=== PATIENT | male | born 1995 | race African-American/Black ===

== ENCOUNTER 2020-10-03 21:25 | Emergency (ER) | payer SELFPAY ==
[~2020-10-03] VITALS: Ht 180.3 cm; Wt 73.0 kg
[2020-10-03] MEDS ORDERED: SODIUM CHLORIDE 0.9% 1,000 ML IV ONE (22:15)
[2020-10-03 22:36] LABS: BASOPHILS % 0.4 % (0.0-2.0); HEMATOCRIT. 36.5 % (42.0-52.0); HEMOGLOBIN. 12.2 g/dL (14.0-18.0); LYMPHOCYTES % 19.5 % (20.0-50.0); MEAN CORPUSCULAR HEMOGLOBIN 27.1 pg (28.0-32.0); MEAN CORPUSCULAR VOLUME 81.1 fL (80.0-94.0); MEAN PLATELET VOLUME 8.3 fl (7.4-10.4); MONOCYTES % 7.1 % (2.0-8.0); PLATELET 372 x1000/uL (130-400); RED CELL DISTRIBUTION WIDTH 15.5 % (11.6-14.6)
[2020-10-03 22:41] LABS: CHLORIDE 120 mEq/L (98-107)
[2020-10-03 22:45] LABS: ETHANOL BLOOD < 10 mg/dL
[2020-10-03] MEDS ORDERED: LACTATED RINGERS 1,000 ML IV NR (23:15)
[2020-10-03 23:29] LABS: CLARITY URINE CLEAR (CLEAR); COLOR URINE DARK YELLOW (YELLOW); KETONES URINE 2+ (NEGATIVE); LEUKOCYTE ESTERASE URINE NEGATIVE (NEGATIVE); NITRITE URINE NEGATIVE (NEGATIVE); OCCULT BLOOD URINE NEGATIVE (NEGATIVE); PROTEIN URINE TRACE (NEGATIVE); UROBILINOGEN URINE 0.2 E.U./dL (0.2-1.0)
[2020-10-03 23:41] LABS: *AMPHETAMINES SCREEN URINE NEGATIVE (NEGATIVE); *BARBITURATES SCREEN URINE NEGATIVE (NEGATIVE); *BENZODIAZEPINES SCREEN URINE NEGATIVE (NEGATIVE); *COCAINE SCREEN URINE NEGATIVE (NEGATIVE)
[2020-10-03 23:42] LABS: CANNABINOID URINE SCREEN NEGATIVE (NEGATIVE); METHADONE URINE SCREEN NEGATIVE (NEGATIVE); OPIATES URINE SCREEN NEGATIVE (NEGATIVE); PHENCYCLIDINE URINE SCREEN NEGATIVE (NEGATIVE)
[2020-10-04] MEDS ORDERED: LORAZEPAM 2MG/ML CPJ IV SCH (11:15)
[2020-10-04] MEDS ORDERED: CLON1PAT11 TP (13:43)
[2020-10-04] MEDS ORDERED: ONDA4TAB5 MT (13:43)
[2020-10-04 14:47] VITALS: BP 142/87
== END 2020-10-04 15:22 | disposition home or self-care (01) ==
LOC: ER 21:25
DX: R41.82 Altered mental status, unspecified (principal)
CPT/HCPCS: 36415; 70450; 80053; 80305; 80320; 81003; 82962; 85025; 93005; 96361; 96374; 99285; J2060; J7030; G0480

== ENCOUNTER 2021-09-12 01:10 | Emergency (ER) | payer MEDICAID, OTHER ==
[~2021-09-12] VITALS: Ht 182.9 cm; Wt 78.0 kg
[~2021-09-12 01:10] MED LIST: CLON1PAT11 TP; ONDA4TAB5 MT
[2021-09-12] MEDS ORDERED: ONDANSETRON HCL 4MG/2ML INJ IV STA (02:26)
[2021-09-12 02:56] LABS: BASOPHILS % 0.3 % (0.0-2.0); HEMATOCRIT. 39.1 % (42.0-52.0); HEMOGLOBIN. 12.9 g/dL (14.0-18.0); LYMPHOCYTES % 11.1 % (20.0-50.0); MEAN CORPUSCULAR HEMOGLOBIN 25.2 pg (28.0-32.0); MEAN CORPUSCULAR VOLUME 76.3 fL (80.0-94.0); MEAN PLATELET VOLUME 8.9 fl (7.4-10.4); MONOCYTES % 9.3 % (2.0-8.0); NEUTROPHILS % 79.3 % (40.0-76.0); PLATELET 296 x1000/uL (130-400); RED BLOOD CELL COUNT 5.12 mill/uL (4.7-6.1); RED CELL DISTRIBUTION WIDTH 14.6 % (11.6-14.6)
[2021-09-12 03:03] LABS: BG BASE EXCESS -6.9 mmol/L (-2.0-2.0); BG CARBOXYHEMOGLOBIN 0.9 % (0.5-1.5); BG FRACTION INSPIRED OXYGEN 100; BG HCO3 ACT 19.5 mmol/L (22.0-26.0); BG METHEMOGLOBIN 0.2 % (0.0-1.5); BG OXYHEMOGLOBIN 97.9 % (94.0-97.0); BG PCO2 42.6 mmHg (35.0-45.0); BG PH 7.279 (7.350-7.450); BG PO2 168.6 mmHg (75.0-100.0); BG SAMPLE SITE RIGHT RADIAL; BG VENT MODE MASK - NRB
[2021-09-12 03:03] LABS: CHLORIDE 108 mEq/L (98-107)
[2021-09-12 03:14] LABS: ETHANOL BLOOD < 10 mg/dL
[2021-09-12] MEDS ORDERED: TETANUS, DIPHTHERIA, PERTUSSIS VAC/PF 0.5ML (>10YR OLD) IM ONE (04:45)
[2021-09-12] MEDS ORDERED: MIDAZOLAM HCL 2 MG/2 ML VIAL IV ONE (05:15)
[2021-09-12 05:17] LABS: CLARITY URINE CLEAR (CLEAR); COLOR URINE YELLOW (YELLOW); KETONES URINE 2+ (NEGATIVE); LEUKOCYTE ESTERASE URINE NEGATIVE (NEGATIVE); NITRITE URINE NEGATIVE (NEGATIVE); OCCULT BLOOD URINE NEGATIVE (NEGATIVE); PROTEIN URINE TRACE (NEGATIVE); SPECIFIC GRAVITY URINE 1.024 (1.005-1.030); UROBILINOGEN URINE 0.2 E.U./dL (0.2-1.0)
[2021-09-12 05:31] LABS: *AMPHETAMINES SCREEN URINE PRESUMTIVE POSITIVE (NEGATIVE); *BARBITURATES SCREEN URINE NEGATIVE (NEGATIVE); *BENZODIAZEPINES SCREEN URINE PRESUMTIVE POSITIVE (NEGATIVE); *COCAINE SCREEN URINE NEGATIVE (NEGATIVE); CANNABINOID URINE SCREEN NEGATIVE (NEGATIVE); METHADONE URINE SCREEN NEGATIVE (NEGATIVE); OPIATES URINE SCREEN NEGATIVE (NEGATIVE); PHENCYCLIDINE URINE SCREEN NEGATIVE (NEGATIVE)
[2021-09-12] MEDS ORDERED: SODIUM CHLORIDE 0.9% 1,000 ML IV ONE ×2 (07:15→09:15)
[2021-09-12] MEDS ORDERED: LORAZEPAM 2MG/ML CPJ IV ONE (07:15)
[2021-09-12] MEDS ORDERED: HALOPERIDOL LACTATE 5MG/ML VIAL IM ONE (07:15)
[2021-09-12] MEDS ORDERED: QUETIAPINE FUMARATE 50MG TABLET PO SCH (09:00)
[2021-09-12 10:18] LABS: CREATINE KINASE 1535 IU/L (39-308)
[2021-09-12 12:43] VITALS: BP 118/85
== END 2021-09-12 12:40 | disposition home or self-care (01) ==
LOC: ER 01:10 → CANBEDREQ 12:05 → ER 12:40
DX: G93.40 Encephalopathy, unspecified (principal); Z98.890 Other specified postprocedural states; Z20.822 Contact with and (suspected) exposure to COVID-19
CPT/HCPCS: 36415; 36600; 70450; 71045; 80053; 80305; 80307; 80320; 80329; 81003; 82375; 82550; 82805; 82962; 83605; 83880; 85025; 87426; 90471; 90715; 96361; 96372; 96374; 96375; 99291; C9803; J1630; J2060; J2250; J2405; J7030; G0480

== ENCOUNTER 2021-11-25 23:52 | Inpatient (IN) | payer BC, MEDICAID ==
[~2021-11-25] VITALS: Ht 180.3 cm; Wt 70.8 kg
[2021-11-26] VITALS (47 sets, daily range): BP systolic 115–181; BP diastolic 38–102
[2021-11-26 00:38] LABS: BASOPHILS % 0.2 % (0.0-2.0); EOSINOPHILS % 0.2 % (0.0-5.0); HEMATOCRIT. 32.6 % (42.0-52.0); HEMOGLOBIN. 10.7 g/dL (14.0-18.0); LYMPHOCYTES % 30.3 % (20.0-50.0); MEAN CORPUSCULAR VOLUME 76.2 fL (80.0-94.0); MEAN PLATELET VOLUME 8.3 fl (7.4-10.4); MONOCYTES % 8.9 % (2.0-8.0); NEUTROPHILS % 60.4 % (40.0-76.0); PLATELET 243 x1000/uL (130-400); RED BLOOD CELL COUNT 4.28 mill/uL (4.7-6.1); RED CELL DISTRIBUTION WIDTH 16.8 % (11.6-14.6)
[2021-11-26 00:43] LABS: CHLORIDE 99 mEq/L (98-107)
[2021-11-26 00:51] LABS: ETHANOL BLOOD < 10 mg/dL
[2021-11-26] MEDS ORDERED: SODIUM CHLORIDE 0.9% 1,000 ML IV ONE (01:45)
[2021-11-26] MEDS: NALOXONE HCL 0.4 MG/ML 1ML VIAL IV PRN (06:36)
[2021-11-26] MEDS ORDERED: SUCCINYLCHOLINE CHLORIDE 200MG/10ML IV ONE ×2 (06:45→08:00)
[2021-11-26] MEDS ORDERED: ETOMIDATE 2MG/ML 10ML VIAL IV ONE ×2 (06:45→08:25)
[2021-11-26] MEDS ORDERED: PROPOFOL 10MG/ML 100ML 100 ML IV ONE (06:45)
[2021-11-26] MEDS ORDERED: MIDAZOLAM HCL 2 MG/2 ML VIAL IV ONE ×2 (07:15→08:00)
[2021-11-26 07:42] LABS: BG BASE EXCESS -4.1 mmol/L (-2.0-2.0); BG CARBOXYHEMOGLOBIN 0.3 % (0.5-1.5); BG DEOXYHEMOGLOBIN 0.7 % (0.0-5.0); BG FRACTION INSPIRED OXYGEN 40; BG HCO3 ACT 21.8 mmol/L (22.0-26.0); BG METHEMOGLOBIN 0.1 % (0.0-1.5); BG OXYGEN SATURATION 99.3 % (92.0-98.5); BG OXYHEMOGLOBIN 98.9 % (94.0-97.0); BG PCO2 43.2 mmHg (35.0-45.0); BG PH 7.321 (7.350-7.450); BG PO2 210.4 mmHg (75.0-100.0); BG SAMPLE SITE RIGHT RADIAL; BG TOTAL HEMOGLOBIN 12.1 g/dL (12.0-18.0); BG VENT MODE VENT - AC
[2021-11-26] MEDS ORDERED: MIDAZOLAM HCL 100 MG in DEXT 5% WATER 80 ML IV ONE (08:00)
[2021-11-26] MEDS ORDERED: ACETAMINOPHEN 325MG TABLET PO PRN (08:15)
[2021-11-26] MEDS ORDERED: MIDAZOLAM HCL 100 MG in SODIUM CHLORIDE 0.9% 80 ML IV PRN ×2 (08:15→17:15)
[2021-11-26] MEDS ORDERED: ONDANSETRON HCL 4MG/2ML INJ IV PRN (08:15)
[2021-11-26] MEDS ORDERED: GUAIFENESIN 200MG/10ML SUGAR FREE UDC PO PRN (08:15)
[2021-11-26] MEDS ORDERED: IPRATROPIUM/ALBUTEROL 0.5-3(2.5)MG/3ML NEB HHN PRN (08:15)
[2021-11-26] MEDS ORDERED: MAGNESIUM/ALUMINUM HYDROXIDE/SIMETHICONE 30ML UDC PO PRN (08:15)
[2021-11-26] MEDS ORDERED: HYDRALAZINE 20MG/ML VIAL IV PRN (08:15)
[2021-11-26] MEDS ORDERED: VECURONIUM BROMIDE 10 MG/VIAL IV ONE (08:25)
[2021-11-26] MEDS ORDERED: SODIUM CHLORIDE 0.9% 10ML VIAL ONE (08:25)
[2021-11-26] MEDS ORDERED: ATROPINE SULFATE 1MG/10ML SYR ONE (08:25)
[2021-11-26 09:19] LABS: T4 FREE 1.35 ng/dL (0.76-1.46)
[2021-11-26] MEDS ORDERED: PROPOFOL 10MG/ML 100ML 100 ML IV NR (09:30)
[2021-11-26 10:07] LABS: CLARITY URINE CLEAR (CLEAR); COLOR URINE YELLOW (YELLOW); KETONES URINE 1+ (NEGATIVE); LEUKOCYTE ESTERASE URINE NEGATIVE (NEGATIVE); NITRITE URINE NEGATIVE (NEGATIVE); OCCULT BLOOD URINE NEGATIVE (NEGATIVE); PH URINE 5.5 (4.5-8.0); PROTEIN URINE NEGATIVE (NEGATIVE); SPECIFIC GRAVITY URINE 1.016 (1.005-1.030); UROBILINOGEN URINE 0.2 E.U./dL (0.2-1.0)
[2021-11-26 10:18] LABS: *AMPHETAMINES SCREEN URINE PRESUMTIVE POSITIVE (NEGATIVE); *BARBITURATES SCREEN URINE NEGATIVE (NEGATIVE); *BENZODIAZEPINES SCREEN URINE PRESUMTIVE POSITIVE (NEGATIVE); *COCAINE SCREEN URINE NEGATIVE (NEGATIVE); CANNABINOID URINE SCREEN NEGATIVE (NEGATIVE); METHADONE URINE SCREEN NEGATIVE (NEGATIVE); OPIATES URINE SCREEN NEGATIVE (NEGATIVE); PHENCYCLIDINE URINE SCREEN NEGATIVE (NEGATIVE)
[2021-11-26] MEDS: DEXT 5%/0.45% NACL 1000ML 1,000 ML IV SCH (11:47)
[2021-11-26] MEDS: ENOXAPARIN 40MG/0.4ML SYR SUBCUT SCH (11:47)
[2021-11-26] MEDS: SODIUM CHLORIDE 0.9% INJ 3ML FLUSH IVF SCH ×2 (14:00→22:00)
[2021-11-26] MEDS ORDERED: PROPOFOL 10MG/ML 100ML 100 ML IV SCH (15:00)
[2021-11-26 15:31] LABS: CREATINE KINASE 1855 IU/L (39-308)
[2021-11-26] MEDS ORDERED: FENTANYL CITRATE/PF 2,500 MCG in SODIUM CHLORIDE 0.9% 200 ML IV PRN (17:45)
[2021-11-26 18:09] LABS: CREATINE KINASE 1401 IU/L (39-308)
[2021-11-26] MEDS: IPRATROPIUM/ALBUTEROL 0.5-3(2.5)MG/3ML NEB HHN SCH (19:44)
[2021-11-26] MEDS: HALOPERIDOL LACTATE 5MG/ML VIAL IM PRN (20:44)
[2021-11-26] MEDS: RISPERIDONE 1MG TABLET PO SCH (21:00)
[2021-11-26] MEDS: CLONIDINE 0.1MG TABLET PO PRN (23:55)
[2021-11-27] VITALS (63 sets, daily range): BP systolic 119–194; BP diastolic 63–133
[2021-11-27 00:06] LABS: CREATINE KINASE MB FRACTION 14.6 ng/mL (0.5-3.6)
[2021-11-27] MEDS: IPRATROPIUM/ALBUTEROL 0.5-3(2.5)MG/3ML NEB HHN SCH ×4 (00:40→20:16)
[2021-11-27] MEDS: DEXT 5%/0.45% NACL 1000ML 1,000 ML IV SCH ×2 (01:01→17:35)
[2021-11-27 05:55] LABS: BASOPHILS % 0.2 % (0.0-2.0); EOSINOPHILS % 0.8 % (0.0-5.0); HEMATOCRIT. 32.6 % (42.0-52.0); HEMOGLOBIN. 10.7 g/dL (14.0-18.0); LYMPHOCYTES % 25.8 % (20.0-50.0); MEAN CORPUSCULAR HEMOGLOBIN 25.4 pg (28.0-32.0); MEAN PLATELET VOLUME 8.5 fl (7.4-10.4); MONOCYTES % 8.4 % (2.0-8.0); NEUTROPHILS % 64.8 % (40.0-76.0); PLATELET 222 x1000/uL (130-400); RED BLOOD CELL COUNT 4.23 mill/uL (4.7-6.1); RED CELL DISTRIBUTION WIDTH 17.5 % (11.6-14.6)
[2021-11-27 06:04] LABS: CHLORIDE 108 mEq/L (98-107)
[2021-11-27 06:19] LABS: CREATINE KINASE 995 IU/L (39-308)
[2021-11-27] MEDS: SODIUM CHLORIDE 0.9% INJ 3ML FLUSH IVF SCH ×3 (06:33→21:03)
[2021-11-27] MEDS: ENOXAPARIN 40MG/0.4ML SYR SUBCUT SCH (08:25)
[2021-11-27] MEDS: HALOPERIDOL LACTATE 5MG/ML VIAL IM PRN (08:25)
[2021-11-27] MEDS: RISPERIDONE 1MG TABLET PO SCH ×3 (08:25→21:03)
[2021-11-27 11:01] LABS: BG BASE EXCESS -2.5 mmol/L (-2.0-2.0); BG CARBOXYHEMOGLOBIN 0.3 % (0.5-1.5); BG DEOXYHEMOGLOBIN 2.2 % (0.0-5.0); BG FRACTION INSPIRED OXYGEN 35; BG METHEMOGLOBIN 0.3 % (0.0-1.5); BG OXYGEN SATURATION 97.8 % (92.0-98.5); BG OXYHEMOGLOBIN 97.2 % (94.0-97.0); BG PH 7.435 (7.350-7.450); BG PO2 101.7 mmHg (75.0-100.0); BG SAMPLE SITE LEFT BRACHIAL; BG TOTAL HEMOGLOBIN 11.2 g/dL (12.0-18.0); BG VENT MODE VENT - CPAP
[2021-11-27] MEDS ORDERED: NALOXONE HCL 0.4 MG/ML 1ML VIAL IV NR (12:00)
[2021-11-28] VITALS (54 sets, daily range): BP systolic 112–168; BP diastolic 60–127
[2021-11-28] MEDS: IPRATROPIUM/ALBUTEROL 0.5-3(2.5)MG/3ML NEB HHN SCH ×4 (00:43→21:18)
[2021-11-28] MEDS: SODIUM CHLORIDE 0.9% INJ 3ML FLUSH IVF SCH ×3 (06:00→21:33)
[2021-11-28] MEDS: DEXT 5%/0.45% NACL 1000ML 1,000 ML IV SCH (09:14)
[2021-11-28] MEDS: ENOXAPARIN 40MG/0.4ML SYR SUBCUT SCH (09:14)
[2021-11-29] VITALS: BP 149/53
[2021-11-29] MEDS: IPRATROPIUM/ALBUTEROL 0.5-3(2.5)MG/3ML NEB HHN SCH ×4 (01:11→21:39)
[2021-11-29] MEDS: DEXT 5%/0.45% NACL 1000ML 1,000 ML IV SCH (02:14)
[2021-11-29 04:00] VITALS: BP 139/85
[2021-11-29] MEDS: SODIUM CHLORIDE 0.9% INJ 3ML FLUSH IVF SCH ×2 (05:04→14:45)
[2021-11-29 08:00] VITALS: BP 101/72
[2021-11-29 08:20] LABS: BASOPHILS % 0.1 % (0.0-2.0); CHLORIDE 110 mEq/L (98-107); HEMATOCRIT. 31.1 % (42.0-52.0); HEMOGLOBIN. 10.3 g/dL (14.0-18.0); LYMPHOCYTES % 13.3 % (20.0-50.0); MEAN CORPUSCULAR HEMOGLOBIN 25.8 pg (28.0-32.0); MEAN CORPUSCULAR VOLUME 77.7 fL (80.0-94.0); MEAN PLATELET VOLUME 8.4 fl (7.4-10.4); MONOCYTES % 9.3 % (2.0-8.0); NEUTROPHILS % 77.3 % (40.0-76.0); PLATELET 200 x1000/uL (130-400); RED CELL DISTRIBUTION WIDTH 17.6 % (11.6-14.6)
[2021-11-29] MEDS: ENOXAPARIN 40MG/0.4ML SYR SUBCUT SCH (08:48)
[2021-11-29 12:00] VITALS: BP 123/83
[2021-11-29] MEDS ORDERED: HALOPERIDOL LACTATE 5MG/ML VIAL IM PRN (14:00)
[2021-11-29] MEDS ORDERED: MIDAZOLAM HCL 5 MG/5 ML VIAL IV NR (15:45)
[2021-11-29 16:00] VITALS: BP 108/52
[2021-11-29 20:00] VITALS: BP_SYST 119; BP_SYST 138; BP_DIAS 68; BP_DIAS 70
[2021-11-30] VITALS: BP 139/79
[2021-11-30] MEDS ORDERED: MIDAZOLAM HCL 2 MG/2 ML VIAL IV NR (00:45)
[2021-11-30] MEDS: IPRATROPIUM/ALBUTEROL 0.5-3(2.5)MG/3ML NEB HHN SCH ×4 (03:03→20:29)
[2021-11-30 04:00] VITALS: BP 137/93
[2021-11-30] MEDS: HALOPERIDOL LACTATE 5MG/ML VIAL IM PRN ×2 (05:03→14:15)
[2021-11-30] MEDS: SODIUM CHLORIDE 0.9% INJ 3ML FLUSH IVF SCH ×4 (06:11→21:13)
[2021-11-30 08:00] VITALS: BP 101/56
[2021-11-30 09:59] LABS: BASOPHILS % 0.1 % (0.0-2.0); EOSINOPHILS % 0.1 % (0.0-5.0); HEMATOCRIT. 35.7 % (42.0-52.0); HEMOGLOBIN. 11.6 g/dL (14.0-18.0); LYMPHOCYTES % 10.5 % (20.0-50.0); MEAN CORPUSCULAR HEMOGLOBIN 25.5 pg (28.0-32.0); MEAN CORPUSCULAR VOLUME 78.5 fL (80.0-94.0); MEAN PLATELET VOLUME 8.9 fl (7.4-10.4); MONOCYTES % 11.1 % (2.0-8.0); NEUTROPHILS % 78.2 % (40.0-76.0); PLATELET 266 x1000/uL (130-400); RED BLOOD CELL COUNT 4.55 mill/uL (4.7-6.1); RED CELL DISTRIBUTION WIDTH 17.9 % (11.6-14.6)
[2021-11-30 10:39] LABS: CHLORIDE 121 mEq/L (98-107)
[2021-11-30] MEDS: ENOXAPARIN 40MG/0.4ML SYR SUBCUT SCH (10:50)
[2021-11-30 12:00] VITALS: BP 140/92
[2021-11-30 16:00] VITALS: BP 134/92
[2021-11-30] MEDS ORDERED: ACETAMINOPHEN 650MG SUPP PR PRN (17:30)
[2021-11-30] MEDS: DEXT 5%/0.45% NACL 1000ML 1,000 ML IV SCH ×2 (17:39)
[2021-11-30] MEDS ORDERED: LEVETIRACETAM 500 MG in SODIUM CHLORIDE 0.9% 100 ML IV SCH (19:30)
[2021-11-30 20:00] VITALS: BP 130/84
[2021-11-30] MEDS ORDERED: FOLIC ACID 1 MG, THIAMINE HCL 100 MG, MVI, ADULT NO.1 10 ML in DEXTROSE 5% WATER 1,000 ML IV ONE ×4 (21:00)
[2021-11-30] MEDS: LEVETIRACETAM 500MG PREMIX 100 ML IV SCH (21:12)
[2021-12-01] VITALS: BP 141/87
[2021-12-01] MEDS: IPRATROPIUM/ALBUTEROL 0.5-3(2.5)MG/3ML NEB HHN SCH ×4 (01:42→20:20)
[2021-12-01] MEDS: DEXT 5%/0.45% NACL 1000ML 1,000 ML IV SCH (02:51)
[2021-12-01 04:00] VITALS: BP 142/81
[2021-12-01] MEDS: SODIUM CHLORIDE 0.9% INJ 3ML FLUSH IVF SCH ×3 (05:12→22:04)
[2021-12-01 06:08] LABS: HEMATOCRIT. 40.4 % (42.0-52.0); HEMOGLOBIN. 13.1 g/dL (14.0-18.0); MEAN CORPUSCULAR HEMOGLOBIN 25.5 pg (28.0-32.0); MEAN CORPUSCULAR VOLUME 78.4 fL (80.0-94.0); MEAN PLATELET VOLUME 8.8 fl (7.4-10.4); PLATELET 299 x1000/uL (130-400); RED BLOOD CELL COUNT 5.15 mill/uL (4.7-6.1); RED CELL DISTRIBUTION WIDTH 18.1 % (11.6-14.6)
[2021-12-01 06:32] LABS: CHLORIDE 123 mEq/L (98-107)
[2021-12-01 08:00] VITALS: BP 137/84
[2021-12-01] MEDS: ENOXAPARIN 40MG/0.4ML SYR SUBCUT SCH (08:37)
[2021-12-01] MEDS: LEVETIRACETAM 500MG PREMIX 100 ML IV SCH (08:38)
[2021-12-01] MEDS: DEXTROSE 5% WATER 1,000 ML IV SCH ×2 (08:38→17:37)
[2021-12-01 09:49] LABS: CREATINE KINASE 10835 IU/L (39-308)
[2021-12-01 11:50] LABS: PLATELET ESTIMATE NORMAL
[2021-12-01 12:00] VITALS: BP 140/84
[2021-12-01] MEDS ORDERED: PHENYTOIN SODIUM 300 MG in SODIUM CHLORIDE 0.9% 100 ML IV NR (12:00)
[2021-12-01 16:00] VITALS: BP 142/85
[2021-12-01] MEDS: PHENYTOIN SODIUM 100MG/2ML VIAL IV SCH (19:47)
[2021-12-01 20:00] VITALS: BP 130/86
[2021-12-02] VITALS (57 sets, daily range): BP systolic 104–170; BP diastolic 68–116
[2021-12-02] MEDS: DEXTROSE 5% WATER 1,000 ML IV SCH ×3 (02:30→23:32)
[2021-12-02] MEDS: IPRATROPIUM/ALBUTEROL 0.5-3(2.5)MG/3ML NEB HHN SCH ×4 (03:20→20:14)
[2021-12-02] MEDS: PHENYTOIN SODIUM 100MG/2ML VIAL IV SCH ×3 (05:48→21:27)
[2021-12-02] MEDS: SODIUM CHLORIDE 0.9% INJ 3ML FLUSH IVF SCH ×3 (05:48→21:27)
[2021-12-02 06:36] LABS: BASOPHILS % 0.1 % (0.0-2.0); HEMATOCRIT. 41.5 % (42.0-52.0); HEMOGLOBIN. 13.2 g/dL (14.0-18.0); LYMPHOCYTES % 8.1 % (20.0-50.0); MEAN CORPUSCULAR HEMOGLOBIN 25.4 pg (28.0-32.0); MEAN CORPUSCULAR VOLUME 79.6 fL (80.0-94.0); MEAN PLATELET VOLUME 9.1 fl (7.4-10.4); MONOCYTES % 8.6 % (2.0-8.0); NEUTROPHILS % 83.2 % (40.0-76.0); PLATELET 297 x1000/uL (130-400); RED BLOOD CELL COUNT 5.21 mill/uL (4.7-6.1); RED CELL DISTRIBUTION WIDTH 17.9 % (11.6-14.6)
[2021-12-02 06:55] LABS: CHLORIDE 124 mEq/L (98-107)
[2021-12-02 07:45] LABS: PHOSPHORUS 1.6 mg/dL (2.5-4.9)
[2021-12-02 07:46] LABS: CREATINE KINASE 8824 IU/L (39-308)
[2021-12-02] MEDS: ENOXAPARIN 40MG/0.4ML SYR SUBCUT SCH (08:46)
[2021-12-02] MEDS ORDERED: SODIUM CHLORIDE 0.9% 1,000 ML IV SCH (12:00)
[2021-12-02 12:10] LABS: BG BASE EXCESS 2.5 mmol/L (-2.0-2.0); BG CARBOXYHEMOGLOBIN 0.6 % (0.5-1.5); BG DEOXYHEMOGLOBIN 7.4 % (0.0-5.0); BG HCO3 ACT 25.2 mmol/L (22.0-26.0); BG METHEMOGLOBIN 0.3 % (0.0-1.5); BG OXYGEN SATURATION 92.5 % (92.0-98.5); BG OXYHEMOGLOBIN 91.7 % (94.0-97.0); BG PCO2 33.3 mmHg (35.0-45.0); BG PH 7.497 (7.350-7.450); BG PO2 61.6 mmHg (75.0-100.0); BG SAMPLE SITE RIGHT BRACHIAL; BG TOTAL HEMOGLOBIN 14.4 g/dL (12.0-18.0); BG VENT MODE NASAL CANNULA
[2021-12-02] MEDS ORDERED: PHENYLEPHRINE 50 MG in DEXT 5% WATER 245 ML IV PRN (13:00)
[2021-12-02] MEDS ORDERED: THIAMINE HCL 100 MG in SODIUM CHLORIDE 0.9% 49 ML IV SCH (13:00)
[2021-12-02] MEDS ORDERED: FENTANYL 2500MCG/250ML PMX 250 ML IV PRN (13:15)
[2021-12-02 13:20] LABS: BG BASE EXCESS -1.3 mmol/L (-2.0-2.0); BG CARBOXYHEMOGLOBIN 0.3 % (0.5-1.5); BG DEOXYHEMOGLOBIN 0.2 % (0.0-5.0); BG HCO3 ACT 26.4 mmol/L (22.0-26.0); BG METHEMOGLOBIN 0.2 % (0.0-1.5); BG OXYGEN SATURATION 99.8 % (92.0-98.5); BG OXYHEMOGLOBIN 99.3 % (94.0-97.0); BG PCO2 56.5 mmHg (35.0-45.0); BG PH 7.288 (7.350-7.450); BG PO2 354.2 mmHg (75.0-100.0); BG SAMPLE SITE RIGHT BRACHIAL; BG TOTAL HEMOGLOBIN 14.7 g/dL (12.0-18.0); BG VENT MODE VENT - AC
[2021-12-02] MEDS ORDERED: FENTANYL CITRATE 2,500 MCG in SODIUM CHLORIDE 0.9% 200 ML IV PRN (13:30)
[2021-12-02] MEDS ORDERED: METOPROLOL TARTRATE 25MG TABLET PO SCH (15:15)
[2021-12-02] MEDS: PROPOFOL 10MG/ML 100ML 100 ML IV PRN (16:29)
[2021-12-02] MEDS: METOPROLOL TARTRATE 25MG TABLET PO SCH ×2 (16:30→23:35)
[2021-12-02] MEDS: PIPERACILLIN/TAZOBACTAM 3.375 G in DEXTROSE 5% WATER 50 ML IV SCH ×2 (16:31→21:27)
[2021-12-03] VITALS (91 sets, daily range): BP systolic 104–142; BP diastolic 66–98
[2021-12-03] MEDS: PROPOFOL 10MG/ML 100ML 100 ML IV PRN ×3 (00:14→17:00)
[2021-12-03] MEDS: IPRATROPIUM/ALBUTEROL 0.5-3(2.5)MG/3ML NEB HHN SCH ×4 (00:19→19:54)
[2021-12-03] MEDS: ACETYLCYSTEINE 100MG/ML 10% VIAL 4ML INH SCH ×3 (00:20→16:23)
[2021-12-03] MEDS: PIPERACILLIN/TAZOBACTAM 3.375 G in DEXTROSE 5% WATER 50 ML IV SCH ×3 (05:26→21:28)
[2021-12-03] MEDS: PHENYTOIN SODIUM 100MG/2ML VIAL IV SCH ×3 (05:27→21:28)
[2021-12-03] MEDS: SODIUM CHLORIDE 0.9% INJ 3ML FLUSH IVF SCH ×3 (05:27→21:28)
[2021-12-03 05:36] LABS: BASOPHILS % 0.1 % (0.0-2.0); EOSINOPHILS % 0.1 % (0.0-5.0); HEMATOCRIT. 38.5 % (42.0-52.0); HEMOGLOBIN. 12.1 g/dL (14.0-18.0); LYMPHOCYTES % 11.4 % (20.0-50.0); MEAN CORPUSCULAR HEMOGLOBIN 24.9 pg (28.0-32.0); MEAN CORPUSCULAR VOLUME 79.3 fL (80.0-94.0); MEAN PLATELET VOLUME 9.6 fl (7.4-10.4); MONOCYTES % 7.5 % (2.0-8.0); NEUTROPHILS % 80.9 % (40.0-76.0); PLATELET 275 x1000/uL (130-400); RED BLOOD CELL COUNT 4.86 mill/uL (4.7-6.1); RED CELL DISTRIBUTION WIDTH 18.6 % (11.6-14.6)
[2021-12-03 08:49] LABS: BG BASE EXCESS -0.5 mmol/L (-2.0-2.0); BG CARBOXYHEMOGLOBIN 0.3 % (0.5-1.5); BG DEOXYHEMOGLOBIN 0.9 % (0.0-5.0); BG FRACTION INSPIRED OXYGEN 50; BG HCO3 ACT 25.2 mmol/L (22.0-26.0); BG METHEMOGLOBIN 0.2 % (0.0-1.5); BG OXYGEN SATURATION 99.1 % (92.0-98.5); BG OXYHEMOGLOBIN 98.6 % (94.0-97.0); BG PCO2 45.1 mmHg (35.0-45.0); BG PH 7.365 (7.350-7.450); BG PO2 171.4 mmHg (75.0-100.0); BG SAMPLE SITE LEFT RADIAL; BG TOTAL HEMOGLOBIN 14.6 g/dL (12.0-18.0); BG VENT MODE VENT - AC
[2021-12-03] MEDS: METOPROLOL TARTRATE 25MG TABLET PO SCH ×2 (09:58→20:32)
[2021-12-03] MEDS: DEXTROSE 5% WATER 1,000 ML IV SCH ×2 (09:59→20:32)
[2021-12-03] MEDS: ENOXAPARIN 40MG/0.4ML SYR SUBCUT SCH (09:59)
[2021-12-03] MEDS: THIAMINE HCL 100MG TABLET PO SCH (12:38)
[2021-12-03] MEDS: LACTULOSE 20G/30ML UDC PO SCH ×2 (14:47→21:28)
[2021-12-03] MEDS ORDERED: LACTULOSE 20G/30ML UDC PO NR (16:00)
[2021-12-03] MEDS: POLYVINYL ALCOHOL OPHTH DROPS 15ML BOTHEYE SCH (18:37)
[2021-12-03] MEDS ORDERED: ACETAMINOPHEN 325MG TABLET NG PRN (20:15)
[2021-12-03] MEDS: ACETAMINOPHEN 650MG/20.3ML UDC NG PRN (20:33)
[2021-12-04] VITALS (56 sets, daily range): BP systolic 103–154; BP diastolic 69–98
[2021-12-04] MEDS: IPRATROPIUM/ALBUTEROL 0.5-3(2.5)MG/3ML NEB HHN SCH ×4 (00:28→21:16)
[2021-12-04] MEDS: ACETYLCYSTEINE 100MG/ML 10% VIAL 4ML INH SCH ×2 (00:28→08:33)
[2021-12-04] MEDS: PROPOFOL 10MG/ML 100ML 100 ML IV PRN ×2 (01:11→08:25)
[2021-12-04 05:19] LABS: BASOPHILS % 0.1 % (0.0-2.0); EOSINOPHILS % 0.9 % (0.0-5.0); HEMATOCRIT. 34.5 % (42.0-52.0); HEMOGLOBIN. 10.9 g/dL (14.0-18.0); LYMPHOCYTES % 10.2 % (20.0-50.0); MEAN CORPUSCULAR HEMOGLOBIN 24.9 pg (28.0-32.0); MEAN CORPUSCULAR VOLUME 78.5 fL (80.0-94.0); MEAN PLATELET VOLUME 9.5 fl (7.4-10.4); MONOCYTES % 5.6 % (2.0-8.0); NEUTROPHILS % 83.2 % (40.0-76.0); PLATELET 195 x1000/uL (130-400); RED CELL DISTRIBUTION WIDTH 17.8 % (11.6-14.6)
[2021-12-04] MEDS: LACTULOSE 20G/30ML UDC PO SCH ×3 (05:39→22:00)
[2021-12-04] MEDS: PHENYTOIN SODIUM 100MG/2ML VIAL IV SCH ×3 (05:39→22:34)
[2021-12-04] MEDS: SODIUM CHLORIDE 0.9% INJ 3ML FLUSH IVF SCH ×3 (05:39→22:36)
[2021-12-04] MEDS: PIPERACILLIN/TAZOBACTAM 3.375 G in DEXTROSE 5% WATER 50 ML IV SCH ×3 (05:39→22:34)
[2021-12-04] MEDS: DEXTROSE 5% WATER 1,000 ML IV SCH ×3 (05:40→19:16)
[2021-12-04] MEDS: POLYVINYL ALCOHOL OPHTH DROPS 15ML BOTHEYE SCH ×4 (05:40→17:44)
[2021-12-04] MEDS: ACETAMINOPHEN 650MG/20.3ML UDC NG PRN (05:46)
[2021-12-04 06:08] LABS: PHOSPHORUS 3.9 mg/dL (2.5-4.9)
[2021-12-04] MEDS ORDERED: POTASSIUM CHLORIDE 20MEQ/PACKET PO NR (07:00)
[2021-12-04 07:26] LABS: BG BASE EXCESS 0.9 mmol/L (-2.0-2.0); BG CARBOXYHEMOGLOBIN 0.2 % (0.5-1.5); BG HCO3 ACT 26.2 mmol/L (22.0-26.0); BG METHEMOGLOBIN 0.2 % (0.0-1.5); BG OXYHEMOGLOBIN 98.6 % (94.0-97.0); BG PCO2 44.4 mmHg (35.0-45.0); BG PH 7.389 (7.350-7.450); BG PO2 166.2 mmHg (75.0-100.0); BG SAMPLE SITE RIGHT RADIAL; BG TOTAL HEMOGLOBIN 12.3 g/dL (12.0-18.0); BG VENT MODE VENT - AC
[2021-12-04] MEDS: THIAMINE HCL 100MG TABLET PO SCH (08:22)
[2021-12-04] MEDS: ENOXAPARIN 40MG/0.4ML SYR SUBCUT SCH (08:23)
[2021-12-04] MEDS: METOPROLOL TARTRATE 25MG TABLET PO SCH ×2 (08:23→22:35)
[2021-12-04 10:17] LABS: BG BASE EXCESS 0.3 mmol/L (-2.0-2.0); BG CARBOXYHEMOGLOBIN 0.2 % (0.5-1.5); BG FRACTION INSPIRED OXYGEN 40; BG HCO3 ACT 25.1 mmol/L (22.0-26.0); BG METHEMOGLOBIN 0.1 % (0.0-1.5); BG OXYHEMOGLOBIN 98.7 % (94.0-97.0); BG PCO2 41.3 mmHg (35.0-45.0); BG PH 7.402 (7.350-7.450); BG PO2 171.8 mmHg (75.0-100.0); BG SAMPLE SITE RIGHT RADIAL; BG TOTAL HEMOGLOBIN 11.8 g/dL (12.0-18.0); BG VENT MODE VENT - CPAP
[2021-12-05] VITALS (19 sets, daily range): BP systolic 69–147; BP diastolic 50–119
[2021-12-05] MEDS: IPRATROPIUM/ALBUTEROL 0.5-3(2.5)MG/3ML NEB HHN SCH ×4 (00:50→20:37)
[2021-12-05] MEDS: ACETYLCYSTEINE 100MG/ML 10% VIAL 4ML INH SCH ×3 (00:50→16:35)
[2021-12-05] MEDS: DEXTROSE 5% WATER 1,000 ML IV SCH ×4 (01:56→21:31)
[2021-12-05] MEDS: PIPERACILLIN/TAZOBACTAM 3.375 G in DEXTROSE 5% WATER 50 ML IV SCH ×3 (05:08→21:32)
[2021-12-05] MEDS: POLYVINYL ALCOHOL OPHTH DROPS 15ML BOTHEYE SCH ×4 (05:08→18:18)
[2021-12-05] MEDS: PHENYTOIN SODIUM 100MG/2ML VIAL IV SCH ×3 (05:19→21:32)
[2021-12-05] MEDS: SODIUM CHLORIDE 0.9% INJ 3ML FLUSH IVF SCH ×3 (05:20→21:32)
[2021-12-05] MEDS: LACTULOSE 20G/30ML UDC PO SCH ×3 (05:38→21:30)
[2021-12-05 05:39] LABS: BASOPHILS % 0.2 % (0.0-2.0); EOSINOPHILS % 1.4 % (0.0-5.0); HEMATOCRIT. 32.7 % (42.0-52.0); HEMOGLOBIN. 10.5 g/dL (14.0-18.0); LYMPHOCYTES % 10.8 % (20.0-50.0); MEAN CORPUSCULAR HEMOGLOBIN 25.1 pg (28.0-32.0); MEAN CORPUSCULAR VOLUME 77.9 fL (80.0-94.0); MEAN PLATELET VOLUME 10.2 fl (7.4-10.4); MONOCYTES % 5.8 % (2.0-8.0); NEUTROPHILS % 81.8 % (40.0-76.0); PLATELET 206 x1000/uL (130-400); RED CELL DISTRIBUTION WIDTH 17.1 % (11.6-14.6)
[2021-12-05 05:58] LABS: CHLORIDE 107 mEq/L (98-107)
[2021-12-05 06:32] LABS: CREATINE KINASE 12823 IU/L (39-308); PHOSPHORUS 1.6 mg/dL (2.5-4.9)
[2021-12-05] MEDS: THIAMINE HCL 100MG TABLET PO SCH (09:00)
[2021-12-05] MEDS: METOPROLOL TARTRATE 25MG TABLET PO SCH ×2 (09:00→21:00)
[2021-12-05] MEDS: ENOXAPARIN 40MG/0.4ML SYR SUBCUT SCH (09:00)
[2021-12-05] MEDS ORDERED: POTASSIUM PHOS,M-BASIC-D-BASIC 10 MMOL in DEXT 5% WATER 246.6667 ML IV NR (14:30)
[2021-12-05] MEDS: ACETAMINOPHEN 650MG/20.3ML UDC NG PRN (21:30)
[2021-12-06] VITALS (12 sets, daily range): BP systolic 125–133; BP diastolic 66–84
[2021-12-06] MEDS: POLYVINYL ALCOHOL OPHTH DROPS 15ML BOTHEYE SCH ×5 (00:48→23:02)
[2021-12-06] MEDS: ACETAMINOPHEN 650MG/20.3ML UDC NG PRN (00:51)
[2021-12-06] MEDS: IPRATROPIUM/ALBUTEROL 0.5-3(2.5)MG/3ML NEB HHN SCH ×4 (02:25→20:19)
[2021-12-06] MEDS: ACETYLCYSTEINE 100MG/ML 10% VIAL 4ML INH SCH ×3 (02:25→17:05)
[2021-12-06] MEDS: SODIUM CHLORIDE 0.9% INJ 3ML FLUSH IVF SCH ×3 (06:40→21:23)
[2021-12-06] MEDS: PIPERACILLIN/TAZOBACTAM 3.375 G in DEXTROSE 5% WATER 50 ML IV SCH ×3 (06:40→21:23)
[2021-12-06] MEDS: PHENYTOIN SODIUM 100MG/2ML VIAL IV SCH ×2 (06:40→14:30)
[2021-12-06] MEDS: LACTULOSE 20G/30ML UDC PO SCH ×3 (06:40→21:24)
[2021-12-06 08:31] LABS: BASOPHILS % 0.1 % (0.0-2.0); EOSINOPHILS % 1.7 % (0.0-5.0); HEMATOCRIT. 32.3 % (42.0-52.0); HEMOGLOBIN. 10.5 g/dL (14.0-18.0); LYMPHOCYTES % 16.5 % (20.0-50.0); MEAN CORPUSCULAR HEMOGLOBIN 25.4 pg (28.0-32.0); MEAN CORPUSCULAR VOLUME 78.2 fL (80.0-94.0); MEAN PLATELET VOLUME 9.7 fl (7.4-10.4); MONOCYTES % 7.8 % (2.0-8.0); NEUTROPHILS % 73.9 % (40.0-76.0); PLATELET 209 x1000/uL (130-400); RED BLOOD CELL COUNT 4.14 mill/uL (4.7-6.1)
[2021-12-06 08:40] LABS: CHLORIDE 107 mEq/L (98-107)
[2021-12-06] MEDS: ENOXAPARIN 40MG/0.4ML SYR SUBCUT SCH (08:40)
[2021-12-06] MEDS: METOPROLOL TARTRATE 25MG TABLET PO SCH ×2 (08:41→21:47)
[2021-12-06] MEDS: THIAMINE HCL 100MG TABLET PO SCH (08:41)
[2021-12-06 08:43] LABS: PHOSPHORUS 1.9 mg/dL (2.5-4.9)
[2021-12-06] MEDS: PANTOPRAZOLE SODIUM 40 MG/VIAL IV SCH (11:28)
[2021-12-06] MEDS: DEXTROSE 5% WATER 1,000 ML IV SCH ×2 (11:28→17:20)
[2021-12-06] MEDS ORDERED: POTASSIUM CHLORIDE 20MEQ TABLET SR PO NR (14:45)
[2021-12-06] MEDS: PHENYTOIN SODIUM EXTENDED 100MG CAPSULE PO SCH (21:23)
[2021-12-07] VITALS (12 sets, daily range): BP systolic 131–166; BP diastolic 72–101
[2021-12-07] MEDS: DIPHENHYDRAMINE 50MG/ML VIAL IV PRN (00:19)
[2021-12-07] MEDS: DEXTROSE 5% WATER 1,000 ML IV SCH ×4 (00:21→21:21)
[2021-12-07] MEDS: ACETYLCYSTEINE 100MG/ML 10% VIAL 4ML INH SCH ×2 (02:09→09:18)
[2021-12-07] MEDS: IPRATROPIUM/ALBUTEROL 0.5-3(2.5)MG/3ML NEB HHN SCH ×4 (02:11→19:54)
[2021-12-07] MEDS: LACTULOSE 20G/30ML UDC PO SCH ×3 (05:19→21:18)
[2021-12-07] MEDS: PIPERACILLIN/TAZOBACTAM 3.375 G in DEXTROSE 5% WATER 50 ML IV SCH ×3 (05:20→21:19)
[2021-12-07] MEDS: SODIUM CHLORIDE 0.9% INJ 3ML FLUSH IVF SCH ×3 (05:20→21:18)
[2021-12-07] MEDS: PHENYTOIN SODIUM EXTENDED 100MG CAPSULE PO SCH ×3 (05:20→21:19)
[2021-12-07] MEDS: POLYVINYL ALCOHOL OPHTH DROPS 15ML BOTHEYE SCH ×4 (05:21→23:54)
[2021-12-07 06:11] LABS: BASOPHILS % 0.3 % (0.0-2.0); EOSINOPHILS % 2.2 % (0.0-5.0); HEMATOCRIT. 32.5 % (42.0-52.0); HEMOGLOBIN. 10.4 g/dL (14.0-18.0); MEAN CORPUSCULAR HEMOGLOBIN 25.2 pg (28.0-32.0); MEAN CORPUSCULAR VOLUME 78.6 fL (80.0-94.0); MEAN PLATELET VOLUME 9.5 fl (7.4-10.4); MONOCYTES % 7.9 % (2.0-8.0); NEUTROPHILS % 68.6 % (40.0-76.0); PLATELET 248 x1000/uL (130-400); RED BLOOD CELL COUNT 4.13 mill/uL (4.7-6.1); RED CELL DISTRIBUTION WIDTH 16.8 % (11.6-14.6)
[2021-12-07 06:13] LABS: CHLORIDE 105 mEq/L (98-107)
[2021-12-07 06:55] LABS: CREATINE KINASE 5928 IU/L (39-308)
[2021-12-07] MEDS: THIAMINE HCL 100MG TABLET PO SCH (08:51)
[2021-12-07] MEDS: ENOXAPARIN 40MG/0.4ML SYR SUBCUT SCH (08:52)
[2021-12-07] MEDS: METOPROLOL TARTRATE 25MG TABLET PO SCH ×2 (08:52→21:20)
[2021-12-07] MEDS: PANTOPRAZOLE SODIUM 40 MG/VIAL IV SCH (08:52)
[2021-12-07] MEDS ORDERED: POTASSIUM PHOS,M-BASIC-D-BASIC 15 MMOL in DEXT 5% WATER 245 ML IV ONE (10:00)
[2021-12-07] MEDS: CLONIDINE 0.1MG TABLET PO PRN (18:39)
[2021-12-08] VITALS (12 sets, daily range): BP systolic 144–175; BP diastolic 65–82
[2021-12-08] MEDS: CLONIDINE 0.1MG TABLET PO PRN ×2 (00:01→09:28)
[2021-12-08] MEDS: DIPHENHYDRAMINE 50MG/ML VIAL IV PRN (00:02)
[2021-12-08] MEDS: IPRATROPIUM/ALBUTEROL 0.5-3(2.5)MG/3ML NEB HHN SCH ×4 (01:44→20:28)
[2021-12-08] MEDS: SODIUM CHLORIDE 0.9% INJ 3ML FLUSH IVF SCH ×3 (05:25→21:04)
[2021-12-08] MEDS: POLYVINYL ALCOHOL OPHTH DROPS 15ML BOTHEYE SCH ×4 (05:25→23:55)
[2021-12-08] MEDS: PHENYTOIN SODIUM EXTENDED 100MG CAPSULE PO SCH ×3 (05:25→21:00)
[2021-12-08] MEDS: LACTULOSE 20G/30ML UDC PO SCH ×3 (05:25→21:03)
[2021-12-08 05:36] LABS: HEMATOCRIT 30.7 % (42.0-52.0); HEMOGLOBIN 9.9 g/dL (14.0-18.0); MEAN CORPUSCULAR HEMOGLOBIN 25.1 pg (28.0-32.0); MEAN CORPUSCULAR VOLUME 77.4 fL (80.0-94.0); PLATELET 269 x1000/uL (130-400); RED BLOOD CELL COUNT 3.96 mill/uL (4.7-6.1); RED CELL DISTRIBUTION WIDTH 16.4 % (11.6-14.6)
[2021-12-08 05:48] LABS: CHLORIDE 104 mEq/L (98-107)
[2021-12-08 06:07] LABS: PHOSPHORUS 3.1 mg/dL (2.5-4.9)
[2021-12-08 06:10] LABS: CREATINE KINASE 4583 IU/L (39-308)
[2021-12-08] MEDS: THIAMINE HCL 100MG TABLET PO SCH (09:27)
[2021-12-08] MEDS: PANTOPRAZOLE SODIUM 40 MG/VIAL IV SCH (09:27)
[2021-12-08] MEDS: METOPROLOL TARTRATE 25MG TABLET PO SCH ×2 (09:28→20:43)
[2021-12-08] MEDS: ENOXAPARIN 40MG/0.4ML SYR SUBCUT SCH (09:29)
[2021-12-08] MEDS: DEXTROSE 5% WATER 1,000 ML IV SCH ×3 (09:30→23:00)
[2021-12-08] MEDS: NICOTINE 14MG PATCH TD SCH (17:09)
[2021-12-08 18:37] LABS: CREATINE KINASE 3555 IU/L (39-308)
[2021-12-08] MEDS: ZOLPIDEM TARTRATE 5MG TABLET PO PRN (20:42)
[2021-12-09] VITALS (12 sets, daily range): BP systolic 132–168; BP diastolic 62–96
[2021-12-09] MEDS: CLONIDINE 0.1MG TABLET PO PRN ×2 (02:25→08:27)
[2021-12-09] MEDS: PHENYTOIN SODIUM EXTENDED 100MG CAPSULE PO SCH ×3 (05:11→21:45)
[2021-12-09] MEDS: SODIUM CHLORIDE 0.9% INJ 3ML FLUSH IVF SCH ×3 (05:11→21:45)
[2021-12-09] MEDS: POLYVINYL ALCOHOL OPHTH DROPS 15ML BOTHEYE SCH ×3 (05:11→18:00)
[2021-12-09] MEDS: LACTULOSE 20G/30ML UDC PO SCH ×3 (05:57→21:45)
[2021-12-09 06:52] LABS: BASOPHILS % 0.7 % (0.0-2.0); EOSINOPHILS % 2.1 % (0.0-5.0); HEMATOCRIT. 31.8 % (42.0-52.0); HEMOGLOBIN. 10.4 g/dL (14.0-18.0); LYMPHOCYTES % 31.3 % (20.0-50.0); MEAN CORPUSCULAR HEMOGLOBIN 25.5 pg (28.0-32.0); MEAN PLATELET VOLUME 8.6 fl (7.4-10.4); NEUTROPHILS % 52.9 % (40.0-76.0); PLATELET 340 x1000/uL (130-400); RED BLOOD CELL COUNT 4.08 mill/uL (4.7-6.1); RED CELL DISTRIBUTION WIDTH 16.5 % (11.6-14.6)
[2021-12-09 07:02] LABS: CHLORIDE 105 mEq/L (98-107)
[2021-12-09] MEDS: FAMOTIDINE 20MG TABLET PO SCH ×2 (08:28→21:45)
[2021-12-09] MEDS: THIAMINE HCL 100MG TABLET PO SCH (08:28)
[2021-12-09] MEDS: METOPROLOL TARTRATE 25MG TABLET PO SCH ×2 (08:28→21:45)
[2021-12-09] MEDS: ENOXAPARIN 40MG/0.4ML SYR SUBCUT SCH (08:29)
[2021-12-09] MEDS: NICOTINE 14MG PATCH TD SCH (08:33)
[2021-12-09] MEDS: DEXTROSE 5% WATER 1,000 ML IV SCH (08:34)
[2021-12-09] MEDS: IPRATROPIUM/ALBUTEROL 0.5-3(2.5)MG/3ML NEB HHN SCH ×2 (08:55→14:43)
[2021-12-09] MEDS: ZOLPIDEM TARTRATE 5MG TABLET PO PRN (21:45)
[2021-12-10] VITALS (12 sets, daily range): BP systolic 128–163; BP diastolic 55–98
[2021-12-10] MEDS: POLYVINYL ALCOHOL OPHTH DROPS 15ML BOTHEYE SCH ×5 (00:01→23:59)
[2021-12-10] MEDS: IPRATROPIUM/ALBUTEROL 0.5-3(2.5)MG/3ML NEB HHN SCH ×4 (02:20→18:00)
[2021-12-10] MEDS: SODIUM CHLORIDE 0.9% INJ 3ML FLUSH IVF SCH ×3 (05:48→20:30)
[2021-12-10] MEDS: LACTULOSE 20G/30ML UDC PO SCH ×4 (05:48→22:00)
[2021-12-10] MEDS: PHENYTOIN SODIUM EXTENDED 100MG CAPSULE PO SCH ×3 (05:48→21:41)
[2021-12-10] MEDS: THIAMINE HCL 100MG TABLET PO SCH (08:15)
[2021-12-10] MEDS: NICOTINE 14MG PATCH TD SCH (08:15)
[2021-12-10] MEDS: FAMOTIDINE 20MG TABLET PO SCH ×2 (08:15→20:29)
[2021-12-10] MEDS: ENOXAPARIN 40MG/0.4ML SYR SUBCUT SCH (08:16)
[2021-12-10] MEDS: METOPROLOL TARTRATE 25MG TABLET PO SCH ×2 (08:28→20:30)
[2021-12-10 10:05] LABS: HEMATOCRIT 33.6 % (42.0-52.0); HEMOGLOBIN 10.8 g/dL (14.0-18.0); MEAN CORPUSCULAR HEMOGLOBIN 25.2 pg (28.0-32.0); MEAN CORPUSCULAR VOLUME 78.3 fL (80.0-94.0); PLATELET 409 x1000/uL (130-400); RED BLOOD CELL COUNT 4.29 mill/uL (4.7-6.1); RED CELL DISTRIBUTION WIDTH 16.6 % (11.6-14.6)
[2021-12-10 10:18] LABS: CHLORIDE 106 mEq/L (98-107)
[2021-12-10 10:37] LABS: CREATINE KINASE 1649 IU/L (39-308)
[2021-12-10] MEDS: ACETAMINOPHEN 325MG TABLET PO PRN (14:01)
[2021-12-10] MEDS: CLONIDINE 0.1MG TABLET PO PRN (17:43)
[2021-12-10] MEDS: ZOLPIDEM TARTRATE 5MG TABLET PO PRN (21:53)
[2021-12-11] VITALS (12 sets, daily range): BP systolic 139–161; BP diastolic 75–99
[2021-12-11] MEDS: LACTULOSE 20G/30ML UDC PO SCH ×4 (06:00→22:00)
[2021-12-11] MEDS: SODIUM CHLORIDE 0.9% INJ 3ML FLUSH IVF SCH ×3 (06:12→21:08)
[2021-12-11] MEDS: POLYVINYL ALCOHOL OPHTH DROPS 15ML BOTHEYE SCH ×4 (06:12→23:33)
[2021-12-11] MEDS: PHENYTOIN SODIUM EXTENDED 100MG CAPSULE PO SCH ×3 (06:14→21:08)
[2021-12-11 08:07] LABS: BASOPHILS % 0.5 % (0.0-2.0); EOSINOPHILS % 2.8 % (0.0-5.0); HEMATOCRIT. 32.8 % (42.0-52.0); HEMOGLOBIN. 10.8 g/dL (14.0-18.0); LYMPHOCYTES % 37.6 % (20.0-50.0); MEAN CORPUSCULAR HEMOGLOBIN 25.4 pg (28.0-32.0); MEAN CORPUSCULAR VOLUME 77.1 fL (80.0-94.0); MEAN PLATELET VOLUME 8.4 fl (7.4-10.4); MONOCYTES % 11.7 % (2.0-8.0); NEUTROPHILS % 47.4 % (40.0-76.0); PLATELET 420 x1000/uL (130-400); RED BLOOD CELL COUNT 4.26 mill/uL (4.7-6.1); RED CELL DISTRIBUTION WIDTH 16.7 % (11.6-14.6)
[2021-12-11 08:30] LABS: CHLORIDE 101 mEq/L (98-107)
[2021-12-11] MEDS: IPRATROPIUM/ALBUTEROL 0.5-3(2.5)MG/3ML NEB HHN SCH ×4 (08:33→20:48)
[2021-12-11 08:39] LABS: CREATINE KINASE 799 IU/L (39-308)
[2021-12-11] MEDS: ENOXAPARIN 40MG/0.4ML SYR SUBCUT SCH (10:07)
[2021-12-11] MEDS: THIAMINE HCL 100MG TABLET PO SCH (10:07)
[2021-12-11] MEDS: METOPROLOL TARTRATE 25MG TABLET PO SCH ×2 (10:07→21:07)
[2021-12-11] MEDS: FAMOTIDINE 20MG TABLET PO SCH ×2 (10:08→21:07)
[2021-12-11] MEDS: DOCUSATE SODIUM 100MG CAPSULE PO PRN (10:08)
[2021-12-11] MEDS: NICOTINE 14MG PATCH TD SCH (11:26)
[2021-12-11] MEDS: ACETAMINOPHEN 325MG TABLET PO PRN (11:26)
[2021-12-11] MEDS: ZOLPIDEM TARTRATE 5MG TABLET PO PRN (21:08)
[2021-12-12] VITALS (9 sets, daily range): BP systolic 143–190; BP diastolic 76–96
[2021-12-12] MEDS: IPRATROPIUM/ALBUTEROL 0.5-3(2.5)MG/3ML NEB HHN SCH ×4 (02:19→20:20)
[2021-12-12] MEDS: POLYVINYL ALCOHOL OPHTH DROPS 15ML BOTHEYE SCH ×4 (04:53→18:13)
[2021-12-12] MEDS: PHENYTOIN SODIUM EXTENDED 100MG CAPSULE PO SCH ×3 (04:53→20:49)
[2021-12-12] MEDS: SODIUM CHLORIDE 0.9% INJ 3ML FLUSH IVF SCH ×3 (04:53→20:50)
[2021-12-12] MEDS: LACTULOSE 20G/30ML UDC PO SCH ×3 (06:00→20:50)
[2021-12-12] MEDS: FAMOTIDINE 20MG TABLET PO SCH ×2 (08:23→20:49)
[2021-12-12] MEDS: ENOXAPARIN 40MG/0.4ML SYR SUBCUT SCH (08:23)
[2021-12-12] MEDS: THIAMINE HCL 100MG TABLET PO SCH (08:23)
[2021-12-12] MEDS: METOPROLOL TARTRATE 25MG TABLET PO SCH ×2 (08:24→20:49)
[2021-12-12] MEDS: NICOTINE 14MG PATCH TD SCH (08:28)
[2021-12-12] MEDS: ACETAMINOPHEN 325MG TABLET PO PRN (08:41)
[2021-12-12] MEDS: FLUOXETINE HCL 10 MG CAPSULE PO SCH (13:39)
[2021-12-12 18:55] LABS: HEMATOCRIT 33.3 % (42.0-52.0); HEMOGLOBIN 10.6 g/dL (14.0-18.0)
[2021-12-12] MEDS: TEMAZEPAM 15MG CAPSULE PO PRN (20:49)
[2021-12-12] MEDS: CLONIDINE 0.1MG TABLET PO PRN (20:54)
[2021-12-13] VITALS: BP 148/79
[2021-12-13] MEDS: IPRATROPIUM/ALBUTEROL 0.5-3(2.5)MG/3ML NEB HHN SCH ×2 (02:39→20:46)
[2021-12-13 04:00] VITALS: BP 158/73
[2021-12-13] MEDS: POLYVINYL ALCOHOL OPHTH DROPS 15ML BOTHEYE SCH ×4 (05:16→17:54)
[2021-12-13] MEDS: LACTULOSE 20G/30ML UDC PO SCH ×3 (05:17→20:57)
[2021-12-13] MEDS: SODIUM CHLORIDE 0.9% INJ 3ML FLUSH IVF SCH ×2 (05:17→22:00)
[2021-12-13] MEDS: PHENYTOIN SODIUM EXTENDED 100MG CAPSULE PO SCH ×3 (05:19→20:52)
[2021-12-13 08:00] VITALS: BP 160/88
[2021-12-13] MEDS: FLUOXETINE HCL 10 MG CAPSULE PO SCH (08:36)
[2021-12-13] MEDS: FAMOTIDINE 20MG TABLET PO SCH ×2 (08:42→20:52)
[2021-12-13] MEDS: NICOTINE 14MG PATCH TD SCH (08:42)
[2021-12-13] MEDS: ENOXAPARIN 40MG/0.4ML SYR SUBCUT SCH (08:42)
[2021-12-13] MEDS: METOPROLOL TARTRATE 25MG TABLET PO SCH ×2 (08:42→20:53)
[2021-12-13] MEDS: THIAMINE HCL 100MG TABLET PO SCH (08:42)
[2021-12-13 11:48] VITALS: BP 142/78
[2021-12-13 12:45] LABS: BASOPHILS % 0.8 % (0.0-2.0); EOSINOPHILS % 1.9 % (0.0-5.0); HEMATOCRIT. 30.7 % (42.0-52.0); HEMOGLOBIN. 10.1 g/dL (14.0-18.0); LYMPHOCYTES % 55.2 % (20.0-50.0); MEAN CORPUSCULAR HEMOGLOBIN 25.8 pg (28.0-32.0); MEAN CORPUSCULAR VOLUME 78.4 fL (80.0-94.0); MEAN PLATELET VOLUME 7.8 fl (7.4-10.4); MONOCYTES % 10.6 % (2.0-8.0); NEUTROPHILS % 31.5 % (40.0-76.0); PLATELET 387 x1000/uL (130-400); RED BLOOD CELL COUNT 3.91 mill/uL (4.7-6.1); RED CELL DISTRIBUTION WIDTH 17.6 % (11.6-14.6)
[2021-12-13 13:35] LABS: CHLORIDE 101 mEq/L (98-107)
[2021-12-13 13:43] LABS: CREATINE KINASE 360 IU/L (39-308)
[2021-12-13 16:40] VITALS: BP 146/83
[2021-12-13 20:00] VITALS: BP 146/75
[2021-12-13] MEDS: CLONIDINE 0.1MG TABLET PO PRN (20:52)
[2021-12-13] MEDS: TEMAZEPAM 15MG CAPSULE PO PRN (20:56)
[2021-12-14] VITALS: BP 150/79
[2021-12-14] MEDS: IPRATROPIUM/ALBUTEROL 0.5-3(2.5)MG/3ML NEB HHN SCH ×4 (01:07→20:55)
[2021-12-14 04:00] VITALS: BP 138/78
[2021-12-14] MEDS: PHENYTOIN SODIUM EXTENDED 100MG CAPSULE PO SCH ×3 (05:42→22:43)
[2021-12-14] MEDS: LACTULOSE 20G/30ML UDC PO SCH ×4 (05:43→22:44)
[2021-12-14] MEDS: SODIUM CHLORIDE 0.9% INJ 3ML FLUSH IVF SCH ×3 (05:44→22:39)
[2021-12-14] MEDS: POLYVINYL ALCOHOL OPHTH DROPS 15ML BOTHEYE SCH ×5 (05:44→23:22)
[2021-12-14 06:41] LABS: CHLORIDE 104 mEq/L (98-107)
[2021-12-14 06:42] LABS: BASOPHILS % 0.5 % (0.0-2.0); EOSINOPHILS % 1.7 % (0.0-5.0); HEMATOCRIT. 30.7 % (42.0-52.0); HEMOGLOBIN. 10.2 g/dL (14.0-18.0); LYMPHOCYTES % 47.2 % (20.0-50.0); MEAN PLATELET VOLUME 8.1 fl (7.4-10.4); MONOCYTES % 13.5 % (2.0-8.0); NEUTROPHILS % 37.1 % (40.0-76.0); PLATELET 364 x1000/uL (130-400); RED BLOOD CELL COUNT 3.93 mill/uL (4.7-6.1); RED CELL DISTRIBUTION WIDTH 17.9 % (11.6-14.6)
[2021-12-14 08:00] VITALS: BP 146/77
[2021-12-14] MEDS: DOCUSATE SODIUM 100MG CAPSULE PO PRN (08:28)
[2021-12-14] MEDS: FAMOTIDINE 20MG TABLET PO SCH ×2 (08:28→22:45)
[2021-12-14] MEDS: ENOXAPARIN 40MG/0.4ML SYR SUBCUT SCH (08:28)
[2021-12-14] MEDS: METOPROLOL TARTRATE 25MG TABLET PO SCH ×2 (08:29→22:45)
[2021-12-14] MEDS: THIAMINE HCL 100MG TABLET PO SCH (08:30)
[2021-12-14] MEDS: NICOTINE 14MG PATCH TD SCH (08:30)
[2021-12-14] MEDS: FLUOXETINE HCL 10 MG CAPSULE PO SCH (08:30)
[2021-12-14 12:00] VITALS: BP 145/77
[2021-12-14 16:00] VITALS: BP 138/74
[2021-12-14 20:00] VITALS: BP 140/80
[2021-12-14] MEDS: TEMAZEPAM 15MG CAPSULE PO PRN (22:53)
[2021-12-15] VITALS: BP 127/84
[2021-12-15] MEDS: IPRATROPIUM/ALBUTEROL 0.5-3(2.5)MG/3ML NEB HHN SCH ×4 (03:00→20:36)
[2021-12-15 04:00] VITALS: BP 142/84
[2021-12-15] MEDS: PHENYTOIN SODIUM EXTENDED 100MG CAPSULE PO SCH ×3 (05:25→20:35)
[2021-12-15] MEDS: ACETAMINOPHEN 325MG TABLET PO PRN ×2 (05:25→09:18)
[2021-12-15] MEDS: LACTULOSE 20G/30ML UDC PO SCH (05:26)
[2021-12-15] MEDS: POLYVINYL ALCOHOL OPHTH DROPS 15ML BOTHEYE SCH ×3 (05:26→18:05)
[2021-12-15] MEDS: SODIUM CHLORIDE 0.9% INJ 3ML FLUSH IVF SCH ×3 (05:26→20:36)
[2021-12-15 08:00] VITALS: BP 131/76
[2021-12-15] MEDS: FLUOXETINE HCL 10 MG CAPSULE PO SCH (09:00)
[2021-12-15] MEDS: NICOTINE 14MG PATCH TD SCH ×2 (09:00→09:26)
[2021-12-15] MEDS: ENOXAPARIN 40MG/0.4ML SYR SUBCUT SCH (09:00)
[2021-12-15] MEDS: METOPROLOL TARTRATE 25MG TABLET PO SCH ×2 (09:17→20:36)
[2021-12-15] MEDS: THIAMINE HCL 100MG TABLET PO SCH (09:18)
[2021-12-15] MEDS: FAMOTIDINE 20MG TABLET PO SCH ×2 (09:18→20:35)
[2021-12-15 12:00] VITALS: BP 127/77
[2021-12-15] MEDS ORDERED: LACTULOSE 20G/30ML UDC PO PRN (13:30)
[2021-12-15 16:00] VITALS: BP 130/15
[2021-12-15 20:00] VITALS: BP 163/95
[2021-12-15] MEDS: TEMAZEPAM 15MG CAPSULE PO PRN (20:41)
[2021-12-15] MEDS: CLONIDINE 0.1MG TABLET PO PRN (20:53)
[2021-12-16] VITALS: BP 136/79
[2021-12-16] MEDS: IPRATROPIUM/ALBUTEROL 0.5-3(2.5)MG/3ML NEB HHN SCH ×4 (01:58→20:05)
[2021-12-16 04:00] VITALS: BP 147/70
[2021-12-16] MEDS: PHENYTOIN SODIUM EXTENDED 100MG CAPSULE PO SCH ×3 (05:58→21:12)
[2021-12-16] MEDS: POLYVINYL ALCOHOL OPHTH DROPS 15ML BOTHEYE SCH ×4 (05:59→17:09)
[2021-12-16] MEDS: SODIUM CHLORIDE 0.9% INJ 3ML FLUSH IVF SCH ×2 (05:59→22:00)
[2021-12-16] MEDS: FLUOXETINE HCL 10 MG CAPSULE PO SCH (08:01)
[2021-12-16 08:25] VITALS: BP 140/77
[2021-12-16] MEDS: NICOTINE 14MG PATCH TD SCH (08:47)
[2021-12-16] MEDS: METOPROLOL TARTRATE 25MG TABLET PO SCH ×2 (08:48→21:13)
[2021-12-16] MEDS: FAMOTIDINE 20MG TABLET PO SCH ×2 (08:48→21:13)
[2021-12-16] MEDS: ENOXAPARIN 40MG/0.4ML SYR SUBCUT SCH (08:48)
[2021-12-16] MEDS: THIAMINE HCL 100MG TABLET PO SCH (08:48)
[2021-12-16 12:30] VITALS: BP 139/79
[2021-12-16 17:12] VITALS: BP 140/83
[2021-12-16 20:00] VITALS: BP 166/79
[2021-12-16] MEDS: TEMAZEPAM 15MG CAPSULE PO PRN (21:12)
[2021-12-16] MEDS: CLONIDINE 0.1MG TABLET PO PRN (21:13)
[2021-12-17] VITALS: BP 148/85
[2021-12-17] MEDS: IPRATROPIUM/ALBUTEROL 0.5-3(2.5)MG/3ML NEB HHN SCH ×3 (01:34→14:00)
[2021-12-17 04:00] VITALS: BP 139/69
[2021-12-17] MEDS: PHENYTOIN SODIUM EXTENDED 100MG CAPSULE PO SCH ×2 (05:54→14:51)
[2021-12-17] MEDS: POLYVINYL ALCOHOL OPHTH DROPS 15ML BOTHEYE SCH ×3 (05:56→14:51)
[2021-12-17] MEDS: FLUOXETINE HCL 10 MG CAPSULE PO SCH (09:00)
[2021-12-17] MEDS: THIAMINE HCL 100MG TABLET PO SCH (09:14)
[2021-12-17] MEDS: METOPROLOL TARTRATE 25MG TABLET PO SCH (09:15)
[2021-12-17] MEDS: ENOXAPARIN 40MG/0.4ML SYR SUBCUT SCH (09:17)
[2021-12-17] MEDS: FAMOTIDINE 20MG TABLET PO SCH (09:18)
[2021-12-17] MEDS: NICOTINE 14MG PATCH TD SCH (09:24)
[2021-12-17] MEDS ORDERED: METO25TA6 PO (09:32)
[2021-12-17] MEDS ORDERED: PHEN100C4 MT (09:32)
[2021-12-17] MEDS ORDERED: FAMO20TA8 PO (09:32)
[2021-12-17] MEDS ORDERED: THIA100T72 PO (09:32)
[2021-12-17 11:37] LABS: CHLORIDE 104 mEq/L (98-107)
[2021-12-17 14:21] VITALS: BP 138/78
== END 2021-12-17 17:50 | disposition home or self-care (01) | DRG 917 ==
LOC: ER 23:52 → MICUSO 11-26 07:05 → EDBEDREQSVC 11-26 07:17 → EDBEDREQ 11-26 07:29 → EDBEDREQTM 11-26 07:29 → ENRESERV 11-26 08:48 → CVICU 11-26 09:20 → 7EST 11-28 16:54 → MICUSO 12-02 13:10 → 5EST 12-05 12:12
PROVIDERS: ADMIT Internal Medicine; ATTEND Internal Medicine
PROC: 0BH17EZ Insertion of Endotracheal Airway into Trachea, Via Natural or Artificial Opening (ICD-10-PCS; 2021-11-26)
PROC: 5A1945Z Respiratory Ventilation, 24-96 Consecutive Hours (ICD-10-PCS; 2021-11-26)
PROC: 5A1945Z Respiratory Ventilation, 24-96 Consecutive Hours (ICD-10-PCS; principal; 2021-12-02)
PROC: 0BH17EZ Insertion of Endotracheal Airway into Trachea, Via Natural or Artificial Opening (ICD-10-PCS; 2021-12-02)
PROC: 4A00X4Z Measurement of Central Nervous Electrical Activity, External Approach (ICD-10-PCS; 2021-12-02)
DX: T40.601A Poisoning by unspecified narcotics, accidental (unintentional), initial encounter (principal); A41.9 Sepsis, unspecified organism; G92.8 Other toxic encephalopathy; J96.01 Acute respiratory failure with hypoxia; J69.0 Pneumonitis due to inhalation of food and vomit; N17.9 Acute kidney failure, unspecified; E87.2 Acidosis; E87.0 Hyperosmolality and hypernatremia; M62.82 Rhabdomyolysis; E46 Unspecified protein-calorie malnutrition; I82.611 Acute embolism and thrombosis of superficial veins of right upper extremity; I82.619 Acute embolism and thrombosis of superficial veins of unspecified upper extremity; N18.4 Chronic kidney disease, stage 4 (severe); F15.10 Other stimulant abuse, uncomplicated; Z20.822 Contact with and (suspected) exposure to COVID-19; N18.9 Chronic kidney disease, unspecified; E87.6 Hypokalemia; D63.1 Anemia in chronic kidney disease; I12.9 Hypertensive chronic kidney disease with stage 1 through stage 4 chronic kidney disease, or unspecified chronic kidney disease; E83.39 Other disorders of phosphorus metabolism; F39 Unspecified mood [affective] disorder; F41.9 Anxiety disorder, unspecified; R74.01 Elevation of levels of liver transaminase levels; G83.21 Monoplegia of upper limb affecting right dominant side; R13.10 Dysphagia, unspecified; S30.0XXA Contusion of lower back and pelvis, initial encounter; G40.909 Epilepsy, unspecified, not intractable, without status epilepticus; G47.00 Insomnia, unspecified; R26.9 Unspecified abnormalities of gait and mobility; S62.306A Unspecified fracture of fifth metacarpal bone, right hand, initial encounter for closed fracture; S11.91XA Laceration without foreign body of unspecified part of neck, initial encounter; Z68.21 Body mass index [BMI] 21.0-21.9, adult; Z82.49 Family history of ischemic heart disease and other diseases of the circulatory system; X58.XXXA Exposure to other specified factors, initial encounter; Y93.89 Activity, other specified; Y99.8 Other external cause status; Y92.89 Other specified places as the place of occurrence of the external cause
CPT/HCPCS: 31500; 36415; 36600; 70551; 71045; 72141; 72146; 73070; 73100; 76770; 80048; 80053; 80061; 80076; 80305; 80307; 80320; 80329; 81003; 82140; 82375; 82550; 82553; 82805; 83036; 83735; 83880; 84100; 84145; 84439; 84443; 84478; 84484; 85014; 85018; 85025; 85027; 85379; 87070; 87426; 92610; 93005; 93306; 93923; 93971; 94002; 94003; 94640; 94660; 95816; 97110; 97112; 97116; 97162; 97164; 97166; 97530; 99291; A4565; C1893; C9113; J0461; J1165; J1200; J1630; J1650; J1953; J2250; J2310; J2405; J2543; J2704; J3010; J3411; J3490; J7030; J7050; J7060; J7070; J7608; A4315; G0480